=== PATIENT | female | born 1995 | race Caucasian/White ===

== ENCOUNTER 2019-08-04 15:27 | Outpatient (CLI) | payer BC ==
--- NOTE | 2019-08-04 16:54 | MRI ---
MRI OF THE LUMBAR SPINE WITHOUT CONTRAST: 08/04/19 INDICATIONS: Back pain. FINDINGS: Lumbar vertebrae maintain normal height and alignment. Disc spaces are normally maintained and exhibi t normal T2 signal. There is no evidence of disc bulge or disc protrusion at any of the lumbar levels . There is no evidence of central canal or foraminal stenosis. The lumbar vertebrae maintain normal s ignal with no edema. IMPRESSION: Unremarkable MRI of lumbar spine. POS: OFF
== END 2019-08-04 15:28 | disposition home or self-care (01) ==
LOC: TBSIIMAG 15:27
PROVIDERS: ATTEND Neurological Surgery
DX: M54.5 Low back pain (principal)
CPT/HCPCS: 72148